=== PATIENT | male | born 1970 ===

== ENCOUNTER 2018-06-08 15:11 | Emergency (ER) | payer MEDICAID ==
[2018-06-08 15:34] VITALS: BP 129/74; PULSE 95; RESP 18; TEMP 98.7; O2SAT 100
[2018-06-08] MEDS ORDERED: cefTRIAXone (Rocephin) 250 mg Inj IM STA (16:03)
--- NOTE | 2018-06-08 16:03 | ED PDOC ---
Addendum entered and electronically signed by Nuzhat Paige PA 06/11/18 23:11: Addendum Addendum: 06/11/18 11am: Chlamydia/GC RNA result faxed from lab: + for N. Gonorrhea. Patient seen in ED on 06/08/18 and treated for suspected STD with Rocephin 250mg IV and Zithromax 1G. Patient called and given + result for Gonorrhea culture. He was advised to refrain from sexual intercourse for at least 7 days, f/u for repeat culture in 4 - 6 weeks to ensure that it has cleared and to inform his sexual partners that they need to be tested. Patient stated understanding and that he had already spoken to his partners. Original Note: HPI: Male Pain Time Seen by Provider: 06/08/18 15:32 Chief Complaint (Nursing): Male Genitourinary Chief Complaint (Provider): penile discharge History Per: Patient History/Exam Limitations: no limitations Onset/Duration Of Symptoms: Days (x2) Current Symptoms Are (Timing): Still Present Additional Complaint(s): 48 year old male with pmHx of HIV, arrives to ED for an evaluation of burning urination with penile discharge since yesterday. Patient believes he contracted gonorrhea from recent unprotected intercourse. Patient has had gonorrhea before and states previous symptoms were similar. He denies any fever, chills or abdominal pain. PMD: Dr. Dheeraj Baxter Past Medical History Reviewed: Historical Data, Nursing Documentation, Vital Signs Vital Signs: Last Vital Signs Temp 98.7 F 06/08/18 15:32 Pulse 95 H 06/08/18 15:32 Resp 18 06/08/18 15:32 BP 129/74 06/08/18 15:32 Pulse Ox 100 06/08/18 15:32 - Medical History PMH: HIV - Surgical History Other surgeries: surgical removal of anal warts - Family History Family History: States: No Known Family Hx - Living Arrangements Living Arrangements: With Family - Social History Current smoker - smoking cessation education provided: No Alcohol: None Drugs: Denies - Home Medications Home Medications: Ambulatory Orders Medication Instructions Recorded Ibuprofen [Motrin] 600 mg PO Q6 #20 tab 09/19/16 Pill For Hiv 09/19/16 - Allergies Allergies/Adverse Reactions: Allergies Allergy/AdvReac Type Severity Reaction Status Date / Time No Known Allergies Allergy Verified 06/08/18 15:32 Review of Systems ROS Statement: Except As Marked, All Systems Reviewed And Found Negative Constitutional: Negative for: Fever, Chills Genitourinary Male: Positive for: Dysuria, Penile Discharge Physical Exam - Reviewed Nursing Documentation Reviewed: Yes Vital Signs Reviewed: Yes - Physical Exam Appears: Positive for: Well, Non-toxic, No Acute Distress Head Exam: Positive for: ATRAUMATIC, NORMAL INSPECTION, NORMOCEPHALIC Skin: Positive for: Normal Color. Negative for: Rash Eye Exam: Positive for: Normal appearance, EOMI, PERRL Neck: Positive for: Normal Cardiovascular/Chest: Positive for: Regular Rate, Rhythm Respiratory: Positive for: Normal Breath Sounds. Negative for: Wheezing, Respiratory Distress Extremity: Positive for: Normal ROM Neurologic/Psych: Positive for: Alert, Oriented (x3). Negative for: Motor/Sensory Deficits - ECG O2 Sat by Pulse Oximetry: 100 (RA) Pulse Ox Interpretation: Normal Medical Decision Making Medical Decision Making: Initial Impression: Dysuria; STD exposure Initial Plan: * Chlamydia/GC culture * Rocephin 250 mg IM * Zithromax 1,000mg PO * Urine culture Time: --Upon provider reevaluation, patient is medically stable and requires no further treatment in the ED at this time. Dose of antibiotics were given in ED and advised patient to follow up with his PMD in 1-2 days. Counseling was provided and all questions were answered regarding diagnosis. There is agreement to discharge plan. Return if symptoms persist or worsen. Scribe Attestation: Documented by Jeanine Gomes, acting as a scribe for Abida Blackwell PA-C. Provider Scribe Attestation: All medical record entries made by the Scribe were at my direction and personally dictated by me. I have reviewed the chart and agree that the record accurately reflects my personal performance of the history, physical exam, medical decision making, and the department course for this patient. I have also personally directed, reviewed, and agree with the discharge instructions and disposition. Disposition - Clinical Impression Clinical Impression: STD (male) - Patient ED Disposition Is Patient to be Admitted: No Counseled Patient/Family Regarding: Studies Performed, Diagnosis, Need For Followup - Disposition Referrals: Dheeraj Baxter MD [Family Provider] - Disposition: Routine/Home Disposition Time: 16:34 Condition: STABLE Additional Instructions: Follow-up with her primary doctor in 2-3 days. Refrain from intercourse until symptoms resolve completely. Instructions: Chlamydia and Gonorrhea, STD Prevention Forms: [facility] (Portuguese)
[2018-06-08] MEDS ORDERED: Sterile Water 10 ML IV ONE (16:16)
== END 2018-06-08 17:24 | disposition home or self-care (01) ==
LOC: H.ER 15:11
DX: A54.9 Gonococcal infection, unspecified (principal); B20 Human immunodeficiency virus [HIV] disease
CPT/HCPCS: 87086; 87491; 87591; 96372; 99282; J0696

== ENCOUNTER 2018-07-02 19:44 | Emergency (ER) | payer MEDICAID ==
[2018-07-02 20:06] VITALS: TEMP 98.2
[2018-07-02] MEDS ORDERED: Sodium Chloride 0.9% 1,000 ML IV STA (21:37)
--- NOTE | 2018-07-02 21:40 | ED PDOC ---
HPI: Abdomen Time Seen by Provider: 07/02/18 21:27 Chief Complaint (Nursing): Abdominal Pain Chief Complaint (Provider): abdominal pain History Per: Patient History/Exam Limitations: no limitations Onset/Duration Of Symptoms: Hrs Current Symptoms Are (Timing): Still Present Location Of Pain/Discomfort: LUQ, LLQ, Other (left flank) Associated Symptoms: Urinary Symptoms Additional Complaint(s): 48 y/o male history of HIV presents with intermittent left-sided abdominal pain x 1 day. Patient states pain radiates to left back, with associated increase urinary frequency. Denies fever, nausea/vomiting, chest pain, shortness of breath, palpitations, changes in bowel movements. No medication taken for relief thus far Past Medical History Reviewed: Historical Data, Nursing Documentation, Vital Signs Vital Signs: Last Vital Signs Temp 98.2 F 07/02/18 20:03 Pulse 76 07/02/18 20:03 Resp 16 07/02/18 20:03 BP 148/94 H 07/02/18 20:03 Pulse Ox 99 07/02/18 20:03 - Medical History PMH: HIV - Surgical History Surgical History: No Surg Hx - Family History Family History: States: Unknown Family Hx - Living Arrangements Living Arrangements: With Family - Home Medications Home Medications: Ambulatory Orders Medication Instructions Recorded Ibuprofen [Motrin] 600 mg PO Q6 #20 tab 09/19/16 Pill For Hiv 09/19/16 Ciprofloxacin HCl [Cipro] 500 mg PO BID #5 tab 07/03/18 Naproxen [Naprosyn] 500 mg PO Q12 PRN #20 tablet 07/03/18 Tamsulosin [Flomax] 0.4 mg PO DAILY #10 cap 07/03/18 traMADol [Ultram] 50 mg PO Q8 PRN #12 tab 07/03/18 - Allergies Allergies/Adverse Reactions: Allergies Allergy/AdvReac Type Severity Reaction Status Date / Time No Known Allergies Allergy Verified 07/02/18 20:03 Review of Systems ROS Statement: Except As Marked, All Systems Reviewed And Found Negative Gastrointestinal: Positive for: Abdominal Pain Physical Exam - Reviewed Nursing Documentation Reviewed: Yes Vital Signs Reviewed: Yes - Physical Exam Appears: Positive for: Well, Non-toxic, No Acute Distress Head Exam: Positive for: ATRAUMATIC, NORMAL INSPECTION, NORMOCEPHALIC Skin: Positive for: Normal Color Eye Exam: Positive for: Normal appearance ENT: Positive for: Normal ENT Inspection Cardiovascular/Chest: Positive for: Regular Rate, Rhythm Respiratory: Positive for: Normal Breath Sounds Gastrointestinal/Abdominal: Positive for: Tenderness (LLQ, LUQ, left flank) Back: Positive for: L CVA Tenderness Extremity: Positive for: Normal ROM Neurologic/Psych: Positive for: Alert, Oriented (x3) - Laboratory Results Result Diagrams: 07/02/18 22:15 07/02/18 22:15 - ECG O2 Sat by Pulse Oximetry: 99 - Progress ED Course And Treament: labs, urine, CT renal protocol, IV fluids, IV toradol CT of the abdomen and pelvis without contrast Clinical statement: Pain. Technique: Multiple axial CT images were obtained from the base of the lungs to the floor of the pelvis utilizing 5 mm axial slices without administration of contrast. Coronal and sagittal reconstructions were also obtained. DLP 384.68 Comparison: None. Findings: Chest: The visualized lung bases are clear. Abdomen: The kidneys are normal in size bilaterally. There is mild left-sided hydronephrosis caused by a 4 mm obstructing stone at the left ureterovesical junction. Other nonobstructing stones are seen bilaterally the kidneys measuring up to 4 mm. The liver, spleen, pancreas, gallbladder and adrenal glands are unremarkable. The aorta demonstrates normal caliber and contour. There is no a bdominal lymphadenopathy or ascites. Pelvis: Moderate amount of stool fills the colon. There is mild sigmoid diverticulosis. The bowel is unremarkable, with no obstructive or inflammatory changes. The appendix is grossly within normal limits. The urinary bladder is within normal limits. There is no pelvic lymphadenopathy or ascites. The other pelvic structures appear unremarkable. Bones: There are no suspicious osseous abnormalities seen. Impression: 1. Mild left-sided hydronephrosis and hydroureter caused by a 4 mm obstructing stone at the left ureterovesical junction. 2. Bilateral nonobstructing nephrolithiasis is also seen. 3. Moderate constipation. No obstructive or inflammatory bowel changes. On re-eval, patient states pain improved. Flomax and Cipro PO given Patient educated on findings, discharged with rx Flomax, Naproxen, Tramadol, Cipro Urine strainer given with instructions on use Advised follow up Urology Encouraged increase fluid intake Return precautions given Patient made aware of elevated LFTs, states he will follow up with his PMD for eval Disposition - Clinical Impression Clinical Impression: Kidney stone on left side - Patient ED Disposition Is Patient to be Admitted: No Counseled Patient/Family Regarding: Studies Performed, Diagnosis, Need For Followup, Rx Given - Disposition Referrals: Durga Miramontes MD [Staff Provider] - Disposition: Routine/Home Disposition Time: 00:56 Condition: IMPROVED Prescriptions: Ciprofloxacin HCl [Cipro] 500 mg PO BID #5 tab Naproxen [Naprosyn] 500 mg PO Q12 PRN #20 tablet PRN Reason: Pain, Moderate (4-7) Tamsulosin [Flomax] 0.4 mg PO DAILY #10 cap traMADol [Ultram] 50 mg PO Q8 PRN #12 tab PRN Reason: Pain, Severe (8-10) Instructions: Kidney Stones in Adults, Renal Colic Forms: [facility] (Lao)
[2018-07-02 22:25] LABS: BASO % 0.3 % (0.0-2.0); EOS # 0.1 K/uL (0.0-0.7); EOS % 1.1 % (0.0-4.0); HEMOGLOBIN 17.3 g/dL (12.0-18.0); LYMPH # 1.1 K/uL (1.0-4.3); LYMPH % 10.5 % (20.0-40.0); MEAN CELL VOLUME 86.5 fl (80.0-94.0); MEAN CORPUSCULAR HGB CONC 32.4 g/dL (33.0-37.0); MEAN PLATELET VOLUME 8.6 fl (7.2-11.7); MONO # 1.2 K/uL (0.0-0.8); MONO % 11.2 % (0.0-10.0); NEUT % 76.9 % (50.0-75.0); NRBC % 0.2 % (0.0-0.0); RBC 6.18 Mil/uL (4.40-5.90); RED CELL DISTRIBUTION WIDTH 14.5 % (11.5-14.5); WHITE BLOOD COUNT 10.4 K/uL (4.8-10.8)
[2018-07-02 22:36] LABS: BLOOD UREA NITROGEN 29 mg/dl (9-20); CALCIUM 9.7 mg/dL (8.4-10.2); GFR NON-AFRICAN AMERICAN 59
[2018-07-02 22:37] LABS: ALB/GLOB RATIO 1.1 (1.0-2.1); ALBUMIN 4.5 g/dL (3.5-5.0); ALT/SGPT 456 U/L (21-72); AST/SGOT 178 U/L (17-59)
[2018-07-02 23:56] LABS: URINE BILIRUBIN NEGATIVE (NEGATIVE); URINE BLOOD SMALL (NEGATIVE); URINE CLARITY SLIGHTY-CLOUDY (Clear); URINE COLOR YELLOW (YELLOW); URINE GLUCOSE (UA) NEG (Normal); URINE LEUKOCYTE ESTERASE NEG Leu/uL (Negative); URINE PROTEIN NEGATIVE (NEGATIVE); URINE UROBILINOGEN 0.2-1.0 mg/dL (0.2-1.0)
[2018-07-03] MEDS ORDERED: Sodium Chloride 0.9% 1,000 ML IV STA (00:09)
[2018-07-03 00:38] VITALS: BP 122/68; PULSE 82; RESP 18
[2018-07-03 00:58] VITALS: O2SAT 99
--- NOTE | 2018-07-03 07:40 | CT ---
Date of service: 07/02/2018 PROCEDURE: CT Abdomen and Pelvis without intravenous contrast HISTORY: left flank pain COMPARISON: None. TECHNIQUE: Helical CT of the abdomen and pelvis was performed without oral or intravenous contrast as per referring physician request. Coronal and sagittal reformats were generated. Contrast dose: None Radiation dose: Total exam DLP = 384.68 mGy-cm. This CT exam was performed using one or more of the following dose reduction techniques: Automated exposure control, adjustment of the mA and/or kV according to patient size, and/or use of iterative reconstruction technique. FINDINGS: LOWER THORAX: Unremarkable. LIVER: Unremarkable. No gross lesion or ductal dilatation. GALLBLADDER AND BILE DUCTS: Unremarkable. PANCREAS: Unremarkable. No gross lesion or ductal dilatation. SPLEEN: Unremarkable. ADRENALS: Unremarkable. No mass. KIDNEYS AND URETERS: Mild left hydronephrosis appreciate with borderline left hydroureter caused by a 4 mm obstructing calculus at the distal left ureter region, nearly medially proximal to the left UVJ. The left ureter is difficult to identify distally due to lack of local fat. No right-sided hydronephrosis. 3.5 mm intrarenal calculus identified at the lower pole right kidney with an even smaller calculus noted at the lower pole left kidney, also nonobstructive. A 2 mm nonobstructing calculus is identified at the upper pole left kidney and an additional punctate calculus may be present at the upper pole more medially even smaller. Urinary bladder appears mildly distended but thin and smooth walled. VASCULATURE: Unremarkable. No aortic aneurysm. No aortic atherosclerotic calcification or mural plaque present. BOWEL: Stomach is mildly distend with retained food. Relatively prominent retained fecal material scattered throughout the large bowel which may indicate an element of constipation. Clinically correlate. No definite bowel obstruction grossly evident. Mural evaluation is compromised by lack of contrast agents and also a lack of intra peritoneal fat. APPENDIX: Not identified. PERITONEUM: Unremarkable. No free fluid. No free air. LYMPH NODES: No gross lymphadenopathy.. BLADDER: The kidneys and ureter section above. REPRODUCTIVE: Unremarkable. BONES: No acute fracture. OTHER FINDINGS: None. IMPRESSION: 1. Likely obstructing calculus 4 mm size at the distal left ureter immediately proximal to the left UVJ region causing mild hydronephrosis and borderline hydroureter. Lack of intra peritoneal fat limits definitive de identification of distal left ureter. Contrast CT is available for follow-up if clinically warranted. 2. Multiple nonobstructing intrarenal calculi seen with a least 3 at the left and 1 on the right kidney. No right hydronephrosis. 3. The constipation as discussed above. Lack of contrast agents limits interpretation of the gastrointestinal tract. Concordant preliminary report from [facility], 07/02/2018.
== END 2018-07-03 01:08 | disposition home or self-care (01) ==
LOC: H.ER 19:44
DX: N13.2 Hydronephrosis with renal and ureteral calculous obstruction (principal)
CPT/HCPCS: 74176; 80053; 81003; 85025; 87086; 96374; 99283; J1885; J7030